=== PATIENT | female | born 1965 | race Two or more races ===

== ENCOUNTER → 2022-12-01 | Outpatient (CLI) | payer OTHER | END | disposition home or self-care (01) | LOC: RAD 15:53 | PROVIDERS: ATTEND General Practice | DX: M25.561 Pain in right knee (principal); M79.661 Pain in right lower leg; M79.604 Pain in right leg; S89.81XA Other specified injuries of right lower leg, initial encounter; S99.911A Unspecified injury of right ankle, initial encounter ==